=== PATIENT | female | born 1945 | race Caucasian/White ===

== ENCOUNTER 2016-09-27 18:26 | Inpatient (IN) | payer OTHER ==
[~2016-09-27] VITALS: Ht 162.6 cm; Wt 56.0 kg
[~2016-09-27 18:26] MED LIST: BENA40TA3 PO; PARO30TA62 PO; metformin
[2016-09-27] MEDS ORDERED: SODIUM CHLORIDE 0.9% 500 ML IV ONE (20:00)
[2016-09-27 21:38] LABS: CLARITY URINE CLOUDY (CLEAR); COLOR URINE ORANGE (YELLOW); KETONES URINE TRACE (NEGATIVE); LEUKOCYTE ESTERASE URINE 2+ (NEGATIVE); NITRITE URINE NEGATIVE (NEGATIVE); OCCULT BLOOD URINE 3+ (NEGATIVE); PH URINE 5.5 (4.5-8.0); PROTEIN URINE 3+ (NEGATIVE); SPECIFIC GRAVITY URINE 1.019 (1.005-1.030); UROBILINOGEN URINE 0.2 E.U./dL (0.2-1.0)
[2016-09-27 22:16] LABS: CHLORIDE 104 mEq/L (98-107)
[2016-09-27 22:17] LABS: PROTHROMBIN TIME 10.8 sec
[2016-09-27 22:18] LABS: MEAN CORPUSCULAR HEMOGLOBIN 24.2 pg (28.0-32.0); MEAN CORPUSCULAR VOLUME 88.2 fL (81.0-99.0); MEAN PLATELET VOLUME 7.4 fl (7.4-10.4); PLATELET 290 x1000/uL (130-400); RED BLOOD CELL COUNT 2.16 mill/uL (4.2-5.4); RED CELL DISTRIBUTION WIDTH 18.9 % (11.6-14.6)
[2016-09-27 22:20] LABS: CARBON DIOXIDE 16 mEq/L (21-32)
[2016-09-27 22:23] LABS: HEMATOCRIT. 19.1 % (36.0-48.0); HEMOGLOBIN. 5.2 g/dL (12.0-16.0)
[2016-09-27 22:40] LABS: PLATELET ESTIMATE NORMAL
[2016-09-28] MEDS ORDERED: SULFAMETHOXAZOLE/TRIMETHOPRIM 800/160MG TABLET PO ONE (00:30)
[2016-09-28] MEDS: ALBUTEROL (0.083%) 2.5MG/3ML NEB HHN PRN (11:41)
[2016-09-28 12:15] LABS: BG BASE EXCESS -14.1 mmol/L (-2.0-2.0); BG CARBOXYHEMOGLOBIN 0.4 % (0.5-1.5); BG DEOXYHEMOGLOBIN 15.7 % (0.0-5.0); BG FRACTION INSPIRED OXYGEN 44; BG HCO3 ACT 19.7 mmol/L (22.0-26.0); BG METHEMOGLOBIN 0.5 % (0.0-1.5); BG OXYGEN SATURATION 84.2 % (92.0-98.5); BG OXYHEMOGLOBIN 83.4 % (94.0-97.0); BG PCO2 105.5 mmHg (35.0-45.0); BG PH 6.889 (7.350-7.450); BG PO2 67.5 mmHg (75.0-100.0); BG SAMPLE SITE RIGHT RADIAL; BG TOTAL HEMOGLOBIN 10.1 g/dL (12.0-18.0); BG VENT MODE NASAL CANNULA
[2016-09-28] MEDS ORDERED: PROPOFOL 10MG/ML 100ML 100 ML IV PRN (12:51)
[2016-09-28 13:12] LABS: BG BASE EXCESS -12.7 mmol/L (-2.0-2.0); BG CARBOXYHEMOGLOBIN 0.2 % (0.5-1.5); BG DEOXYHEMOGLOBIN 2.7 % (0.0-5.0); BG HCO3 ACT 17.3 mmol/L (22.0-26.0); BG METHEMOGLOBIN 0.6 % (0.0-1.5); BG OXYGEN SATURATION 97.3 % (92.0-98.5); BG OXYHEMOGLOBIN 96.5 % (94.0-97.0); BG PCO2 61.2 mmHg (35.0-45.0); BG PH 7.069 (7.350-7.450); BG PO2 112.1 mmHg (75.0-100.0); BG SAMPLE SITE RIGHT RADIAL; BG TIDAL VOLUME(mL) 450 mL; BG TOTAL HEMOGLOBIN 9.9 g/dL (12.0-18.0); BG VENT MODE VENT - A/C; BG VENT RATE 22 set
[2016-09-28] MEDS ORDERED: ETOMIDATE 2MG/ML 10ML VIAL IV ONE (14:11)
[2016-09-28] MEDS ORDERED: METF10002 PO (14:32)
[2016-09-28] MEDS ORDERED: BENA40TA3 PO (14:32)
[2016-09-28] MEDS ORDERED: PHENYLEPHRINE 20 MG in DEXT 5% WATER 498 ML IV PRN (15:15)
[2016-09-28] MEDS: NOREPINEPHRINE 4 MG in DEXT 5% WATER 246 ML IV PRN ×2 (15:15→22:21)
[2016-09-28 16:12] LABS: CARBON DIOXIDE 16 mEq/L (21-32); CHLORIDE 108 mEq/L (98-107)
[2016-09-28 16:14] LABS: HEMATOCRIT. 26.5 % (36.0-48.0); MEAN CORPUSCULAR HEMOGLOBIN 27.3 pg (28.0-32.0); MEAN CORPUSCULAR VOLUME 90.5 fL (81.0-99.0); MEAN PLATELET VOLUME 8.2 fl (7.4-10.4); PLATELET 245 x1000/uL (130-400); RED BLOOD CELL COUNT 2.93 mill/uL (4.2-5.4); RED CELL DISTRIBUTION WIDTH 17.3 % (11.6-14.6)
[2016-09-28 16:42] LABS: BG BASE EXCESS -10.2 mmol/L (-2.0-2.0); BG CARBOXYHEMOGLOBIN 0.2 % (0.5-1.5); BG DEOXYHEMOGLOBIN 0.4 % (0.0-5.0); BG FRACTION INSPIRED OXYGEN 100; BG HCO3 ACT 15.4 mmol/L (22.0-26.0); BG METHEMOGLOBIN 0.6 % (0.0-1.5); BG OXYGEN SATURATION 99.6 % (92.0-98.5); BG OXYHEMOGLOBIN 98.8 % (94.0-97.0); BG PCO2 32.5 mmHg (35.0-45.0); BG PH 7.293 (7.350-7.450); BG PO2 305.8 mmHg (75.0-100.0); BG SAMPLE SITE RIGHT RADIAL; BG TIDAL VOLUME(mL) 450 mL; BG VENT MODE VENT - A/C; BG VENT RATE 22 set
[2016-09-28 18:08] LABS: NUCLEATED RED BLOOD CELLS 5 /100 WBC; PLATELET ESTIMATE NORMAL
[2016-09-29] MEDS: NOREPINEPHRINE 4 MG in DEXT 5% WATER 246 ML IV PRN (05:03)
[2016-09-29] MEDS: ALBUTEROL (0.083%) 2.5MG/3ML NEB HHN PRN (07:51)
[2016-09-29 08:11] LABS: BG CARBOXYHEMOGLOBIN 0.3 % (0.5-1.5); BG FRACTION INSPIRED OXYGEN 70; BG HCO3 ACT 15.7 mmol/L (22.0-26.0); BG METHEMOGLOBIN 0.3 % (0.0-1.5); BG OXYHEMOGLOBIN 97.4 % (94.0-97.0); BG PH 7.283 (7.350-7.450); BG PO2 126.2 mmHg (75.0-100.0); BG SAMPLE SITE RIGHT BRACHIAL; BG TIDAL VOLUME(mL) 450 mL; BG TOTAL HEMOGLOBIN 9.4 g/dL (12.0-18.0); BG VENT MODE VENT - A/C; BG VENT RATE 22 set
[2016-09-29] MEDS ORDERED: PANTOPRAZOLE SODIUM 40 MG/VIAL IV SCH (09:00)
[2016-09-29] MEDS ORDERED: SODIUM BICARBONATE 8.4% 1 MEQ/ML 50ML SYR IV NR (09:00)
[2016-09-29 09:47] LABS: CARBON DIOXIDE 17 mEq/L (21-32); CHLORIDE 106 mEq/L (98-107)
[2016-09-29 10:07] LABS: BASOPHILS % 0.6 % (0.0-2.0); EOSINOPHILS % 0.4 % (0.0-5.0); HEMATOCRIT. 26.1 % (36.0-48.0); MEAN CORPUSCULAR HEMOGLOBIN 27.1 pg (28.0-32.0); MEAN CORPUSCULAR VOLUME 88.9 fL (81.0-99.0); MEAN PLATELET VOLUME 8.2 fl (7.4-10.4); MONOCYTES % 13.5 % (2.0-8.0); NEUTROPHILS % 77.5 % (40.0-76.0); PLATELET 272 x1000/uL (130-400); RED BLOOD CELL COUNT 2.93 mill/uL (4.2-5.4); RED CELL DISTRIBUTION WIDTH 17.4 % (11.6-14.6)
[2016-09-29] MEDS: MORPHINE SULFATE 100 MG in DEXT 5% WATER 90 ML IV PRN ×2 (11:43→14:24)
[2016-09-29] MEDS ORDERED: IPRATROPIUM/ALBUTEROL 0.5-3(2.5)MG/3ML NEB HHN SCH (12:00)
[2016-09-29] MEDS ORDERED: BUDESONIDE 0.5MG/2ML NEB HHN SCH (12:00)
[2016-09-29] MEDS ORDERED: LIDOCAINE HCL/PF 1% 2ML VIAL ONE (14:35)
[2016-09-29 16:15] VITALS: BP 42/27
== END 2016-09-29 16:35 | disposition expired | DRG 133 ==
LOC: ER 18:40 → 8WST 09-28 00:59 → EDBEDREQ 09-28 01:12 → ENRESERV 09-28 02:00 → MICUNO 09-28 12:17
PROVIDERS: ADMIT Family Medicine; ATTEND Family Medicine
PROC: 5A1935Z Respiratory Ventilation, Less than 24 Consecutive Hours (ICD-10-PCS; principal; 2016-09-29)
PROC: 02HV33Z Insertion of Infusion Device into Superior Vena Cava, Percutaneous Approach (ICD-10-PCS; 2016-09-29)
PROC: B548ZZA Ultrasonography of Superior Vena Cava, Guidance (ICD-10-PCS; 2016-09-29)
PROC: 30233N1 Transfusion of Nonautologous Red Blood Cells into Peripheral Vein, Percutaneous Approach (ICD-10-PCS; 2016-09-29)
PROC: 0BH17EZ Insertion of Endotracheal Airway into Trachea, Via Natural or Artificial Opening (ICD-10-PCS; 2016-09-29)
DX: J96.01 Acute respiratory failure with hypoxia (principal); E43 Unspecified severe protein-calorie malnutrition; G93.41 Metabolic encephalopathy; J44.9 Chronic obstructive pulmonary disease, unspecified; J90 Pleural effusion, not elsewhere classified; C78.7 Secondary malignant neoplasm of liver and intrahepatic bile duct; C79.02 Secondary malignant neoplasm of left kidney and renal pelvis; C79.01 Secondary malignant neoplasm of right kidney and renal pelvis; E86.0 Dehydration; E87.2 Acidosis; C34.90 Malignant neoplasm of unspecified part of unspecified bronchus or lung; E83.51 Hypocalcemia; N39.0 Urinary tract infection, site not specified; S42.309A Unspecified fracture of shaft of humerus, unspecified arm, initial encounter for closed fracture; R62.7 Adult failure to thrive; E11.9 Type 2 diabetes mellitus without complications; I10 Essential (primary) hypertension; Z51.5 Encounter for palliative care; D50.9 Iron deficiency anemia, unspecified; Z66 Do not resuscitate; D72.829 Elevated white blood cell count, unspecified; C79.89 Secondary malignant neoplasm of other specified sites; X58.XXXA Exposure to other specified factors, initial encounter; R31.0 Gross hematuria; Z90.49 Acquired absence of other specified parts of digestive tract; Z90.710 Acquired absence of both cervix and uterus; Z88.0 Allergy status to penicillin; Z68.21 Body mass index [BMI] 21.0-21.9, adult; Y93.89 Activity, other specified; Y92.89 Other specified places as the place of occurrence of the external cause; Y99.8 Other external cause status
CPT/HCPCS: 31500; 36415; 36569; 36600; 71010; 74176; 76770; 76937; 80053; 81001; 82375; 82805; 82962; 83690; 84478; 85025; 85610; 86850; 86900; 86920; 87040; 87086; 93005; 94002; 94640; 99285; C1725; C9113; J2270; J2704; J3490; J7040; J7060; J7611; J7620; J7626; P9016; A4315